=== PATIENT | female | born 1980 | race Caucasian/White ===

== ENCOUNTER 2018-03-12 14:52 | Emergency (ER) | payer OTHER, BC, SELFPAY ==
[2018-03-12 14:52] VITALS: BP 129/76; BP 132/81; PULSE 87; PULSE 95; RESP 10; RESP 14; TEMP 36.9; O2SAT 95; O2SAT 99; BMI 24.7
--- NOTE | 2018-03-12 15:08 | EKG12_ITS ---
Test Reason : SYNCOPE Blood Pressure : / mmHG Vent. Rate : 097 BPM Atrial Rate : 097 BPM P-R Int : 126 ms QRS Dur : 096 ms QT Int : 398 ms P-R-T Axes : 067 047 060 degrees QTc Int : 505 ms Normal sinus rhythm Prolonged QT Abnormal ECG Confirmed by EVE WATSON, ANGELIA ([id number]), editorial clerk IVIS ADAMS ([id number] on 03/14/2018 9:08:46 AM Referred By: MELODIE Confirmed By:ANGELIA PRADO MD
--- NOTE | 2018-03-12 15:13 | ED.DCSUM_ITS ---
- ER Visit Summary Date of Service: 03/12/18 Chief Complaint: Syncope History of Present Illness: The patient is a 37 F presenting for evaluation secondary to a syncopal episode. 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 This caused poor modulation of her parasympathetic nervous system, and the patient has frequent episodes of syncope. She states that intermittently these are associated with seizure-like activity. 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 She states that it continued to get worse so she lied flat and apparently she passed out and had a seizure. School called squad, the patient was immediately brought to the emergency department. Patient states that she did not have any sort of chest pain palpitations associated with it. She denies any DVT or PE risk factors. Patient states that she is currently titrating down her dosage of Effexor as she will be changing to Wellbutrin within the next couple of weeks, and she states that she had nausea and vomiting last weekend associated with this. She denies any headaches neck stiffness or limb rigidity. She denies any fevers. Review of systems otherwise negative. Physical Examination: Vital signs are within normal limits, patient is afebrile. General: Patient is well-nourished well-developed and in no acute distress. Head: Normocephalic, atraumatic Eyes: Pupils anasacoria which is at baseline per the patient, extra occular motion intact bialterally ENT: Moist mucous membranes Neck: Supple, no lymphadenopathy, no JVD, no meningismus CVS: Heart regular rate and rhythm, no murmurs, rubs or gallops, radial pulses 2 + bilaterally Resp: Respirations nondistressed, lung sounds clear bilaterally Abdomen: Soft, nontender, nondistended, no palpable masses, normal bowel sounds Back: Nontender Extremities: Nontender, atraumatic, active full range of motion, no peripheral edema Skin: warm, no rashes, no petechia Neuro: Alert and oriented x 4, CN 2-12 intact, no lateralizing neurological defecits Psyc: Normal affect Test Results: Sinus rhythm at [address] segments, normal T waves. There is mild QTc prolongation 505. Trending backwards the patient's QTC has been as long as 520 in the past. CBC chemistry troponin are remarkable only for potassium of 3.3 chloride 111. Emergency Department Course and Treatment: Patient presented secondary to a syncopal episode in the setting of parasympathetic damage after a chest surgery in the past as well as recent titration of Effexor. She was evaluated with an EKG that shows a mildly prolonged QTC of 505 which the patient states that she has a history of. Patient's laboratory workup was found to be unremarkable, she did not have any events on telemetry monitoring. Given the fact that the patient has had history of this in the past and do not believe that she requires admission. Patient did state that she was having nausea over the weekend this could potentially be from her downward titration of Effexor, she was recommended on clear liquids, and aggressive hydration. She is instructed to follow-up with primary care. Disposition: Discharge Impression: 1. Syncope 2. 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 History of prolonged QTC This note was generated with [employer] dictation software. It may contain incorrect words, spelling, and punctuation that were not noted in review of the chart prior to signing ED Disposition - Plan for ED Patient: Disposition: Home or Assisted Living Chief Complaint: Syncope Diagnosis: Syncope Instructions: ED Fainting Unkn Cause Referrals: Óscar Garrett MD [Primary Care Provider] - [facility] appointment
[2018-03-12 15:29] LABS: Hemoglobin 12.9 g/dl (12.0-15.0); Mean Corp Hgb Conc 32.3 g/gl (32-36); Mean Corpuscular Volume 96.2 fL (81-99); Mean Platelet Vol. 9.1 fl (6.2-12.0); Neutrophil % 62.4 % (47-70); Platelet Count 306 K/mm3 (150-450); RBC Distribution Width CV 12.7 % (11.6-14.6); RBC Distribution Width SD 44.4 fl (35.1-43.9); Red Blood Count 4.16 M/mm3 (4.2-5.4); White Blood Count 6.7 K/mm3 (4.4-11.0)
[2018-03-12 15:30] LABS: Absolute Lymphocyte Count 1.93 X10^3/ul (0.83-4.51); Absolute Neutrophil Count 4.2 X10^3/uL (2.0-7.7); Basophil# 0.02 X10^3/uL; Basophil% 0.3 % (0-1); Eosinophil# 0.08 X10^3/uL; Eosinophils% 1.2 % (0-5); Lymphocyte # 1.93 X10^3/ul (4.0); Lymphocyte % 28.6 % (19-41); Monocyte% 7.4 % (0-10)
[2018-03-12 15:36] LABS: POSITIVE COUNT NO; POSITIVE DIFFERENTIAL NO; POSITIVE MORPHOLOGY NO
[2018-03-12] MEDS: Ondansetron 4 MG/2 ML Vial IV (15:45)
[2018-03-12 15:47] LABS: Anion Gap 7 (5-15); BUN 11 mg/dL (7-18); BUN/Creat Ratio 15.3 RATIO (10-20); Calcium,Total 8.7 mg/dL (8.5-10.1); Chloride 111 mmol/L (98-107); Creatinine, Serum 0.72 mg/dL (0.55-1.02); EST Glomerular Filtration Rate 97 mL/min (>60); Est Glom Filt Rate - Afr Amer 118 mL/min (>60); Estimated Creatinine Clearance 89.35 ml/min; Glucose 85 mg/dL (74-106); Potassium 3.3 mmol/L (3.5-5.1); Sodium Level 140 mmol/L (136-145)
[2018-03-12 16:01] VITALS: BP 128/70; PULSE 80; RESP 14; O2SAT 99
[2018-03-12 16:18] VITALS: BP 116/70; PULSE 85; RESP 14; O2SAT 99
== END 2018-03-12 16:21 | disposition home or self-care (01) ==
PROVIDERS: Emergency Provider Emergency Medicine; Family Provider Family Medicine; PCP Family Medicine
DX: R55 Syncope and collapse (principal); G90.8 Other disorders of autonomic nervous system; I45.81 Long QT syndrome; Z79.899 Other long term (current) drug therapy
CPT/HCPCS: 80048; 84484; 85025; 93005; 96374; 99285; A4216; J2405

== ENCOUNTER 2018-03-31 19:05 | Emergency (ER) | payer OTHER, BC, SELFPAY ==
[2018-03-31 19:06] VITALS: BP 115/77; PULSE 105; RESP 15; TEMP 36.8; O2SAT 100; BMI 24.0
--- NOTE | 2018-03-31 19:43 | ED.VISSUMM ---
- ER Visit Summary Date of Service: 03/31/18 Chief Complaint: Nausea and vomiting History of Present Illness: The patient is a 37 F history of syncope secondary to hypotension from a prior surgery to remove a neuroma in her chest. Patient states they previously treated her with Effexor but is now switching to Wellbutrin to maintain her blood pressure. She said during the transition from one medication the other she has had nausea and vomiting. She denies fever. She denies diarrhea. She denies abdominal pain. She denies dysuria. Physical Examination: Well-appearing young female. Vital signs are stable afebrile. Her blood pressure is 115 7. Afebrile. Pulse ox are percent on room air no signs of hypoxia. She is in no distress. H EENT exam unremarkable with moist mucous membranes. 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 Neck nontender no JVD. Lungs clear to auscultation bilaterally. Heart regular rhythm rate about 105 no murmur. Abdomen soft nontender. Normal bowel sounds no peritoneal signs. No signs of obstruction. Moving all 4 extremities. Neurovascularly intact. Neurologically she is awake and alert without focal motor deficits. Test Results: None Emergency Department Course and Treatment: Patient will be treated with 1 L normal saline. Zofran for nausea. And Toradol for her headache. Treatment Plan: Repeat exam doing well. She will be discharged to home with a prescription for Zofran. Disposition: discharge Impression: Acute nausea and vomiting History of syncope from hypotension This note was generated with [employer] dictation software. It may contain incorrect words, spelling, and punctuation that were not noted in review of the chart prior to signing ED Disposition - Plan for ED Patient: Chief Complaint: Nausea/Vomiting Referrals: Óscar Garrett MD [Primary Care Provider] -
[2018-03-31] MEDS: Ketorolac 30 MG/ML Syringe IV (20:08)
[2018-03-31] MEDS: Ondansetron 4 MG/2 ML Vial IV (20:08)
[2018-03-31] MEDS: 0.9% Normal Saline 1,000 ML 1000 ML IV (20:08)
--- NOTE | 2018-03-31 20:37 | ED.DEP ---
ED Disposition - Plan for ED Patient: Disposition: Home or Assisted Living Chief Complaint: Nausea/Vomiting Instructions: ED Nausea Vomiting Prescriptions: Ondansetron [Zofran Odt] 4 mg PO Q8H PRN PRN #10 tab PRN Reason: Nausea Referrals: Óscar Garrett MD [Primary Care Provider] - Additional Instructions: Plenty fluids and rest. Zofran as needed for nausea. Follow-up your primary care physician as needed.
[2018-03-31 20:54] VITALS: BP 105/78; PULSE 95; RESP 14; O2SAT 99
[2018-03-31] MEDS: DiphenhydrAMINE 50 MG/ML Syringe 25 MG IV (21:01)
[2018-03-31] MEDS: Ondansetron ODT 4 MG Tablet PO (21:01)
== END 2018-03-31 21:08 | disposition home or self-care (01) ==
PROVIDERS: Emergency Provider Emergency Medicine; Family Provider Family Medicine; PCP Family Medicine
DX: R11.2 Nausea with vomiting, unspecified (principal); I95.89 Other hypotension; R55 Syncope and collapse; Z79.899 Other long term (current) drug therapy
CPT/HCPCS: 96374; 96375; 99283; J7030; A4216; J2405

== ENCOUNTER → 2019-04-09 | Outpatient (CLI) | payer OTHER, BC, SELFPAY ==
[2019-04-02 16:39] VITALS: BMI 23.9
== END | disposition home or self-care (01) ==
LOC: LABSPEC 15:27
PROVIDERS: Family Provider Family Medicine; PCP Family Medicine; Referring Provider Family Medicine; Visit Provider Family Medicine
DX: J32.9 Chronic sinusitis, unspecified (principal)
CPT/HCPCS: 87070; 87077; 87186; 87205

== ENCOUNTER → 2019-04-19 | Outpatient (CLI) | payer OTHER, BC, SELFPAY ==
[2019-04-02 16:39] VITALS: BMI 23.9
--- NOTE | 2019-04-19 13:41 | CT_ITS ---
STUDY: CT MAXILLOFACIAL SINUSES REASON FOR EXAM: Female, 38 years old. Sinusitis. RADIATION DOSAGE (If Supplied By Facility): CTDIvol = ( 33.06 ) mGy, DLP = ( 825.58 ) mGycm TECHNIQUE: The patient was scanned in a multi detector CT scanner. High resolution axial imaging was performed without the administration of intravenous contrast material. Sagittal and coronal images were reconstructed. Individualized dose optimization techniques were used for this CT. COMPARISON: None. FINDINGS: FRONTAL SINUSES: Chronic sinusitis in the right frontal sinus. Left frontal sinus is clear. ETHMOIDAL SINUSES: Prominent soft tissue density filling most of the right ethmoid air cells. Left ethmoid air cells are normal. MAXILLARY SINUSES: Near complete opacification of the right maxillary sinus including possible air-fluid level. Opacification of the right ostiomeatal complex. Left maxillary sinus and ostiomeatal complex are normal. SPHENOIDAL SINUSES: Soft tissue density consistent with chronic mucosal thickening and chronic inflammatory secretions seen in the right sphenoid sinus. Left sphenoid sinus is clear. Normal bilateral middle turbinates. Normal bilateral inferior turbinates. Normal midline nasal septum. There is patency of the bilateral nasal airways. The visualized osseous structures are normal. The visualized bilateral orbital contents are normal. CT/Sinus/Facial Bone IMPRESSION: Unusual pattern of moderate to severe chronic sinusitis and possibly acute maxillary sinusitis throughout the right paranasal sinuses while the left paranasal sinuses remain normal. Electronically Signed: Jeronimo Zhang MD at 23:45 EDT , Service support ,
== END | disposition home or self-care (01) ==
LOC: CT 13:38
PROVIDERS: Family Provider Family Medicine; PCP Family Medicine; Referring Provider Otolaryngology Otolaryngology/Facial Plastic Surgery; Visit Provider Otolaryngology Otolaryngology/Facial Plastic Surgery
DX: J32.9 Chronic sinusitis, unspecified (principal)
CPT/HCPCS: 70486

== ENCOUNTER 2019-05-03 21:37 | Emergency (ER) | payer OTHER, BC, SELFPAY ==
[2019-04-02 16:39] VITALS: BMI 23.9
[2019-05-03 21:39] VITALS: BP 127/79; PULSE 99; RESP 16; TEMP 36.8; O2SAT 100; BMI 26.5
[2019-05-03 22:41] LABS: Absolute Lymphocyte Count 2.95 X10^3/ul (0.83-4.51); Absolute Neutrophil Count 4.3 X10^3/uL (2.0-7.7); Basophil# 0.01 X10^3/uL; Basophil% 0.1 % (0-1); Eosinophil# 0.25 X10^3/uL; Hematocrit 39.7 % (37-47); Hemoglobin 13.2 g/dl (12.0-15.0); Lymphocyte # 2.95 X10^3/ul (4.0); Lymphocyte % 35.6 % (19-41); Mean Corp Hgb Conc 33.2 g/gl (32-36); Mean Corpuscular Hgb 31.8 pg (27.0-32.0); Mean Corpuscular Volume 95.7 fL (81-99); Mean Platelet Vol. 9.5 fl (6.2-12.0); Monocyte# 0.77 X10^3/uL; Monocyte% 9.3 % (0-10); Platelet Count 309 K/mm3 (150-450); RBC Distribution Width CV 12.6 % (11.6-14.6); RBC Distribution Width SD 43.7 fl (35.1-43.9); Red Blood Count 4.15 M/mm3 (4.2-5.4); White Blood Count 8.3 K/mm3 (4.4-11.0)
[2019-05-03 22:42] LABS: POSITIVE COUNT NO; POSITIVE DIFFERENTIAL NO; POSITIVE MORPHOLOGY NO
[2019-05-03 22:51] LABS: Anion Gap 5 (5-15); BUN 15 mg/dL (7-18); BUN/Creat Ratio 20.3 RATIO (10-20); Chloride 108 mmol/L (98-107); Creatinine, Serum 0.74 mg/dL (0.55-1.02); EST Glomerular Filtration Rate 94 mL/min (>60); Est Glom Filt Rate - Afr Amer 113 mL/min (>60); Glucose 87 mg/dL (74-106); Magnesium 1.9 mg/dL (1.6-2.6); Potassium 3.6 mmol/L (3.5-5.1); Sodium Level 138 mmol/L (136-145)
--- NOTE | 2019-05-03 23:33 | ED.VISSUMM ---
- ER Visit Summary Date of Service: 05/03/19 Chief Complaint: Numbness and tingling History of Present Illness: The patient is a 38 F who presents with numbness and tingling to bilateral feet and hands over the past several days. She started taking doxycycline 5 days ago after having surgery on her nasal septum. She thought today that it might be an allergic reaction to the doxycycline. She called the pharmacist who then referred her to her ENT. ENT advised her to stop the medication and take Benadryl. She states after the first dose of Benadryl her symptoms seem to improve. They did return when she took her second dose of Benadryl did not get any improvement and noted paresthesias up to her knees bilaterally. She has not had any muscle weakness. Physical Examination: Vital signs unremarkable. Patient sitting upright in bed no acute distress. Heart is regular rate and rhythm. Lung sounds clear. Abdomen is soft and nontender. Neuro exam reveals normal strength throughout. She reports decreased sensation to light touch the bilateral lower legs. She has normal coloration and legs are warm to touch. She has strong distal pulses. Test Results: Electrolytes were checked here. CBC and chemistry studies along with magnesium are all normal. Emergency Department Course and Treatment: I advised the patient that at this time I do not have a definitive cause for her reported paresthesias. They are perfectly symmetric and would be atypical for a central neurologic cause. Although this is not a typical reaction to doxycycline she cannot think of anything else that was different. It may just take more time for the doxycycline to get out of her system. Treatment Plan: [] Disposition: Discharge Impression: Paresthesias This note was generated with [employer] dictation software. It may contain incorrect words, spelling, and punctuation that were not noted in review of the chart prior to signing ED Disposition - Plan for ED Patient: Disposition: Home or Assisted Living Instructions: Paraesthesias Referrals: Óscar Garrett MD [Primary Care Provider] - 3-5 Days if not improving
[2019-05-03 23:40] VITALS: BP 127/80; PULSE 77; RESP 16; O2SAT 99
== END 2019-05-03 23:41 | disposition home or self-care (01) ==
PROVIDERS: Emergency Provider Emergency Medicine; Family Provider Family Medicine; PCP Family Medicine
DX: R20.2 Paresthesia of skin (principal); F41.9 Anxiety disorder, unspecified; F32.9 Major depressive disorder, single episode, unspecified; Z79.899 Other long term (current) drug therapy
CPT/HCPCS: 80048; 83735; 85025; 99283

== ENCOUNTER → 2019-06-14 | Outpatient (CLI) | payer OTHER, BC, SELFPAY ==
--- NOTE | 2019-06-14 14:12 | CT_ITS ---
STUDY: CT MAXILLOFACIAL SINUSES REASON FOR EXAM: Female, 38 years old. Chronic sinusitis, recent balloon septoplasty procedure RADIATION DOSAGE (If Supplied By Facility): CTDIvol = ( 33.45 ) mGy, DLP = ( 843.27 ) mGycm TECHNIQUE: The patient was scanned in a multi detector CT scanner. High resolution axial imaging was performed without the administration of intravenous contrast material. Sagittal and coronal images were reconstructed. Individualized dose optimization techniques were used for this CT. COMPARISON: None. FINDINGS: Paranasal sinuses are clear. Nasofrontal recesses, ostiomeatal units and sphenoethmoid recesses are clear. There is minimal amount of mucus in the right sphenoid sinus. There is dehiscence of the right frontal sinus posterolateral wall along the orbital roof. There is no herniation of orbital contents into the sinus. Nasal cavity and nasopharynx are clear. Base of skull is intact. CT/Sinus/Facial Bone IMPRESSION: Unremarkable paranasal sinuses without acute or chronic illness. Electronically Signed: Carrol Elliott, at 17:07 EDT Tel , Service support ,
== END | disposition home or self-care (01) ==
LOC: CT 14:09
PROVIDERS: Family Provider Family Medicine; PCP Family Medicine; Referring Provider Otolaryngology; Visit Provider Otolaryngology
DX: J32.0 Chronic maxillary sinusitis (principal)
CPT/HCPCS: 70486

== ENCOUNTER 2019-09-09 16:49 | Emergency (ER) | payer OTHER, BC, SELFPAY ==
[2019-09-09 16:52] VITALS: BP 110/83; PULSE 112; RESP 16; TEMP 37; O2SAT 100; BMI 27.8
--- NOTE | 2019-09-09 17:08 | EKG12_ITS ---
Test Reason : CP Blood Pressure : / mmHG Vent. Rate : 098 BPM Atrial Rate : 098 BPM P-R Int : 130 ms QRS Dur : 094 ms QT Int : 392 ms P-R-T Axes : 067 027 040 degrees QTc Int : 500 ms Normal sinus rhythm Prolonged QT Abnormal ECG Confirmed by FAY TORRES ([id number]), fan mail editor ZIYAD GRAHAM ([id number]) on 09/16/2019 9:04:06 AM Referred By: SEEMA Confirmed By:FAY TORRES
--- NOTE | 2019-09-09 17:11 | ED.DCSUM_ITS ---
History of Present Illness Chief Complaint: Chest Pain Informant: Patient Onset: Yesterday Narrative: Patient sent in after seeing her chiropractor for chest pains starting yesterday. States pressure wraps around to her back both sides. States when he gets severe will get short of breath and sick to her stomach. States not as severe currently however pain is a 7. No recent cough. No recent travel, surgeries, or immobilizations. No history of PE or DVT. No tobacco history. No family history of MIs at a young age. No history of hypertension, diabetes, hypercholesterolemia. States has hypotension on midodrine and Topamax followed by Dr. Kamara in [place]. Reports has have stress test due to her syncopal episodes from her hypotension. Reports saw her chiropractor was adjusted reports her blood pressure systolic 120s is higher than normal therefore sent here for evaluation. Prior similar symptoms: Yes Past Medical History - Allergies and Home Meds Allergies/Adverse Reactions: Allergies albuterol Allergy (Mild, Verified 09/09/19 16:50) x morphine Allergy (Mild, Verified 09/09/19 16:50) x doxycycline Allergy (Verified 09/09/19 16:50) Other hydromorphone HCl [From Dilaudid] Allergy (Verified 09/09/19 16:50) Unknown Primary Care Physician: Óscar Limon MD [Primary Care Provider] - Smoking Status: Never smoker Review of Systems General: Denies: Chills, Fever, Sweats Eyes: Denies: Visual changes - bilaterally, Diplopia ENT: Denies: Rhinorrhea, Sore throat Cardiovascular: Reports: Chest pain. Denies: Palpitations Respiratory: Denies: Dyspnea, Cough, Dyspnea on exertion Gastrointestinal: Denies: Abdominal pain, Nausea, Vomiting, Diarrhea, Melena, Hematochezia Genitourinary: Denies: Dysuria, Hematuria, Frequency Musculoskeletal: Denies: Back pain, Extremity Pain Skin: Denies: Rash, Wounds Neurological: Denies: Headache, Weakness, Numbness Physical Exam Vital Signs/Narrative: Vital Signs Temp Pulse Resp BP Pulse Ox 09/09/19 16:52 98.6 F 112 H 16 110/83 H 100 Inital Vital Signs reviewed: Yes General: Well nourished, Well developed, No Acute Distress Head: Normocephalic, Atraumatic Eyes: Perrl, EOMI ENT: Moist mucous membranes, No rhinorrhea Neck: Supple, Nontender Cardiovascular: Regular rate, Regular rhythm, No murmurs Respiratory: No distress, CTA bilaterally, Chest nontender Abdomen: Soft, Nontender, Nondistended, Normal bowel sounds Back: Nontender, Normal Inspection Extremities: Nontender, No edema Skin: Normal color, No rash Neurological: Alert, Oriented x3, Cranial nerves II-XII grossly intact, Normal Strength, Normal Sensation Psychological: Normal affect, Normal Mood Diagnostic/Tx/Re-eval Clinical Impression(s) from Imaging Studies Chest X-Ray 09/09/19 17:30 IMPRESSION: 1. No acute cardiorespiratory disease. [ ] Electronically Signed: Carrol Elliott, at 17:52 EDT Tel , Service support , Abnormal Lab Results 09/09/19 09/09/19 09/09/19 17:20 17:20 17:20 WBC 7.0 RBC 3.80 L Hgb 12.1 Hct 37.0 MCV 97.4 MCH 31.8 MCHC 32.7 RDW Std Deviation 43.8 RDW Coeff of Yael 12.1 Plt Count 286 MPV 9.6 Immature Gran % (Auto) 0.300 Neut % (Auto) 59.9 Lymph % (Auto) 30.8 Benson % (Auto) 7.6 Eos % (Auto) 1.1 Baso % (Auto) 0.3 Absolute Neuts (auto) 4.2 Absolute Lymphs (auto) 2.15 Nucleated RBC % 0 D-Dimer Quant (PE/DVT) < 0.27 L Sodium 141 Potassium 3.3 L Chloride 110 H Carbon Dioxide 25.0 Anion Gap 6 BUN 12 Creatinine 0.80 Estim Creat Clear Calc 78.87 Est GFR (MDRD) Af Amer 103 Est GFR (MDRD) Non-Af 85 BUN/Creatinine Ratio 15.0 Glucose 89 Calcium 8.9 Troponin I < 0.015 Serum , Qual 09/09/19 17:20 WBC RBC Hgb Hct MCV MCH MCHC RDW Std Deviation RDW Coeff of Yael Plt Count MPV Immature Gran % (Auto) Neut % (Auto) Lymph % (Auto) Benson % (Auto) Eos % (Auto) Baso % (Auto) Absolute Neuts (auto) Absolute Lymphs (auto) Nucleated RBC % D-Dimer Quant (PE/DVT) Sodium Potassium Chloride Carbon Dioxide Anion Gap BUN Creatinine Estim Creat Clear Calc Est GFR (MDRD) Af Amer Est GFR (MDRD) Non-Af BUN/Creatinine Ratio Glucose Calcium Troponin I Serum , Qual NEGATIVE - EKG Initial EKG Interpretation: Sinus Rhythm - Sinus rate of 98, no ST or T wave changes. Report electronic QTC is 500, however calculated QTC is 358. - Medical Decision Making Patient EKG cardiac work-up negative. Heart score is a 1. Initial presentation with tachycardia gives her low risk Wells criteria for PE. D-dimer obtained was normal. Chest x-ray negative. She given Toradol with improvement of symptoms only mild back pain. States tolerable. Is comfortable going home. She will follow-up as an outpatient for further testing as needed. Should continue Motrin. Signs and symptoms discussed return. All questions were answered. ED Disposition - Plan for ED Patient: Disposition: Home or Assisted Living Diagnosis: Atypical chest pain Instructions: CHEST PAIN, Uncertain Cause Referrals: Óscar Limon MD [Primary Care Provider] - 3-5 Days
--- NOTE | 2019-09-09 17:30 | RAD_ITS ---
STUDY: X-RAY CHEST REASON FOR EXAM: Female, 39 years old. Chest pain TECHNIQUE: Two view of the chest were performed COMPARISON: 08 June 2016 FINDINGS: Lungs are clear. There is no pneumothorax, pulmonary edema, pleural effusions or cardiomegaly. Osseous structures are intact. There is no gas under the diaphragms. [ Loop recorder is implanted in the left anterior chest wall. ] RAD/Chest PA and Lateral IMPRESSION: 1. No acute cardiorespiratory disease. [ ] Electronically Signed: Carrol Elliott, at 17:52 EDT Tel , Service support ,
[2019-09-09 17:37] LABS: Absolute Lymphocyte Count 2.15 X10^3/uL (0.83-4.51); Absolute Neutrophil Count 4.2 X10^3/uL (2.0-7.7); Basophil# 0.02 X10^3/uL; Basophil% 0.3 % (0-1); Eosinophil# 0.08 X10^3/uL; Eosinophils% 1.1 % (0-5); Hemoglobin 12.1 g/dL (12.0-15.0); Lymphocyte # 2.15 X10^3/ul (4.0); Lymphocyte % 30.8 % (19-41); Mean Corp Hgb Conc 32.7 g/dL (32-36); Mean Corpuscular Hgb 31.8 pg (27.0-32.0); Mean Corpuscular Volume 97.4 fL (81-99); Mean Platelet Vol. 9.6 fl (6.2-12.0); Monocyte# 0.53 X10^3/uL; Monocyte% 7.6 % (0-10); NRBC Flagged by Analyzer 0 % (0-5); Neutrophil # 4.17 X10^3/uL (2.7-7.7); Neutrophil % 59.9 % (47-70); Platelet Count 286 K/mm3 (150-450); RBC Distribution Width CV 12.1 % (11.6-14.6); RBC Distribution Width SD 43.8 fl (35.1-43.9)
[2019-09-09 17:49] LABS: Anion Gap 6 (5-15); BUN 12 mg/dL (7-18); Calcium,Total 8.9 mg/dL (8.5-10.1); Chloride 110 mmol/L (98-107); EST Glomerular Filtration Rate 85 mL/min (>60); Est Glom Filt Rate - Afr Amer 103 mL/min (>60); Estimated Creatinine Clearance 78.87 ml/min; Glucose 89 mg/dL (74-106); Potassium 3.3 mmol/L (3.5-5.1); Sodium Level 141 mmol/L (136-145)
[2019-09-09 18:03] VITALS: BP 127/86; PULSE 90; RESP 16; O2SAT 100
[2019-09-09 18:09] LABS: D-Dimer Quantitative (DVT/PE) < 0.27 FEU/ug/m (0.27-0.49)
[2019-09-09 18:30] LABS: Internal QC Validated? YES +Cl - CLEAR BKGD; Pregnancy, Serum, hCG Quali. NEGATIVE Negative
[2019-09-09] MEDS: Ketorolac 30 MG/ML Syringe IV (18:57)
[2019-09-09 20:02] VITALS: BP 120/82; PULSE 89; RESP 13; O2SAT 99
[2019-09-09 20:16] VITALS: BP 116/92; PULSE 88; RESP 14; O2SAT 100
== END 2019-09-09 20:17 | disposition home or self-care (01) ==
PROVIDERS: Emergency Provider Emergency Medicine; Family Provider Family Medicine; PCP Family Medicine
DX: R07.89 Other chest pain (principal); I10 Essential (primary) hypertension; Z79.899 Other long term (current) drug therapy
CPT/HCPCS: 71046; 80048; 84484; 84703; 85025; 85379; 93005; 96374; 99284; A4216

== ENCOUNTER → 2019-09-18 | Outpatient (CLI) | payer OTHER, BC, SELFPAY ==
[2019-09-09 16:52] VITALS: BMI 27.8
[2019-09-18 09:54] LABS: Potassium 3.7 mmol/L (3.5-5.1)
--- NOTE | 2019-09-18 14:52 | NEURO ---
NCS and/or EMG Patient Report Ordering Doctor: Óscar Limon DATE OF SERVICE: 09/18/19 Brittny Pablo is a 39-year-old female presents for electrodiagnostic testing of the upper limbs. She reports severe pain in the chest which radiates primarily into the right upper limb. Electrodiagnostic findings: Median motor nerve demonstrates normal distal latency, amplitude and conduction velocity bilaterally. Normal ulnar motor response bilaterally. Normal median and ulnar F waves. Sensory responses are within normal limits. On needle EMG, all muscles tested in the upper limbs showed no evidence of denervation with normal motor unit action potentials. Electrodiagnostic assessment: This is a normal electrodiagnostic study of the upper limbs. There is no electrodiagnostic evidence for peripheral neuropathy, brachial plexopathy or cervical radiculopathy. If there are any further questions, please do not hesitate to contact me.
== END | disposition home or self-care (01) ==
PROVIDERS: Family Provider Family Medicine; PCP Family Medicine; Referring Provider Family Medicine; Visit Provider Family Medicine
DX: E87.6 Hypokalemia (principal); G62.9 Polyneuropathy, unspecified
CPT/HCPCS: 36415; 84132; 95886; 95913

== ENCOUNTER → 2019-10-17 07:06 | Outpatient (CLI) | payer OTHER, BC, SELFPAY ==
--- NOTE | 2019-10-17 07:09 | CT_ITS ---
STUDY: CT CHEST WITH CONTRAST REASON FOR EXAM: Female, 39 years old. Ganglioneuroma removed in 2012, right-sided chest tightness RADIATION DOSAGE (If Supplied By Facility): CTDIvol = ( 8.25 ) mGy, DLP = ( 244.93 ) mGycm TECHNIQUE: Transaxial imaging was performed following intravenous administration of 100mL [id number]-300. Individualized dose optimization techniques were used for this CT. COMPARISON: 08 June 2016 FINDINGS: Lungs are clear. Pleural surfaces are intact. Central airways are patent. Mediastinal contents are normal. Cardiac changes are normal in size and shape. Aorta and pulmonary artery are unremarkable. Osseous structures are unremarkable. Loop recorder is implanted in the left anterior chest wall. CT/Chest WITH Contrast IMPRESSION: Normal enhanced CT Chest examination. Electronically Signed: Carrol Elliott, at 16:54 EST Tel , Service support ,
== END ==
PROVIDERS: Family Provider Family Medicine; PCP Family Medicine; Referring Provider Family Medicine; Visit Provider Family Medicine
DX: D36.10 Benign neoplasm of peripheral nerves and autonomic nervous system, unspecified (principal)
CPT/HCPCS: 71260; Q9967

== ENCOUNTER 2020-04-28 13:01 | Day surgery (SDC) | payer OTHER, BC, SELFPAY ==
--- NOTE | 2020-04-27 15:13 | HP.PCM_ITS ---
History and Physical Date of Admission: 04/28/20 Brittny Pablo 1980 ? ? REFERRING PHYSICIAN: Alexsander Meadows, * ? CHIEF COMPLAINT: Umbilical Hernia Repair-2 ? HPI: The patient is a 39 year old female presents with painful umbilical hernia. She had an episode of incarceration, several days ago, noted golf ball sized lesion - very painful, stuck for about an hour and a half. Also had abdominal bloating and nausea. Patient has known of hernia for the past 8 years but only recently it has become symptomatic. Presently, is having bowel movements and passing flatus. She still has pain in the periumbiilcal area. ? ? PAST MEDICAL HISTORY ? Abdominal pain, right upper quadrant ? ? Calculus of gallbladder without mention of cholecystitis or obstruction ? ? Dizziness ? ? Dyspnea ? ? resolved after resection of the tumor ? Flatulence, eructation, and gas pain ? ? Gallbladder & bile duct stone ? ? 2010 ? Lightheadedness ? ? 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 Migraine, unspecified, with intractable migraine, so stated, without mention of status migrainosus ? ? Migraine ? Nausea alone ? ? Recent childbirth 2006,2009 ? Syncope ? ? recurrent; extensive evaluation at [facility] indicates vasovagal etiology ? Syncope and collapse ? ? PAST SURGICAL HISTORY ? APPENDECTOMY ? 2000? ? laproscopic ? ECHOCARDIOGRAM ? ? ? EF 60%, no valvular disease, no hypertrophy ? EXPLORER EVENT MONITOR ? 05/2016 ? EXTRACTION ERUPTED TOOTH/EXR ? ? ? wisdom teeth ? INCISION EARDRUM,ASPIR,GEN ANESTH ? ? ? Myringotomy/tubes ? LAP CHOLECYSTECT/CHOLANGIOGRAPHY ? 02/26/2010 ? MEDIASTINOSCOPY ? 07/26/2013 ? Visualization of chest; with bx ? OVARIAN CYSTECTOMY ? 2000? ? laproscopic ? PAST SURGICAL HISTORY OF ? 08/14/2013 ? Thoracoscopy, surgical; video-assisted thoracoscopic surgery; resection of right superior mediastinal ganglioneuroma; [facility] Dr. Castillo ? PAST SURGICAL HISTORY OF ? ? ? Tympanostomy tube; in her 20's ? ? Current Outpatient Medications ? escitalopram oxalate (LEXAPRO ORAL) Take by mouth. ? gabapentin (NEURONTIN) 100 mg capsule Take 100 mg by mouth three times daily. ? midodrine (PROAMITINE) 5 mg tablet Take 1 tablet by mouth three times daily. Patient needs appointment to continue medication. ? topiramate (TOPAMAX) 25 mg capsule Take 4 capsules by mouth twice daily. ? levonorgestrel (MIRENA) 20 mcg/24 hour (5 years) IUD 1 Each by INTRAUTERINE route one time only. ? HYDROcodone-acetaminophen (NORCO) 5-325 mg per tablet Take 1 tablet by mouth every 6 hours as needed for Pain for up to 5 days. ? benzonatate (TESSALON PERLE) 100 mg capsule Take 2 capsules by mouth three times daily as needed. (Patient not taking: Reported on 01/25/2019 ? venlafaxine XR (EFFEXOR XR) 150 mg 24 hr capsule Take 1 capsule by mouth once daily. (Patient not taking: Reported on 04/24/2020 ? ? ALLERGIES: Albuterol Sulfate; Dilaudid [Hydromorphone (Bulk)]; Oxycodone; Hydromorphone ? PERSONAL HISTORY: Social History Tobacco Use ? Smoking status: Never Smoker ? Smokeless tobacco: Never Used Substance Use Topics ? Alcohol use: No ? Drug use: No ? FAMILY HISTORY ? Breast Cancer Mother ? ? Dx in 40s ? Cancer Maternal Grandfather ? ? Lymphoma, melanoma ? Aneurysm Mother ? ? Hypertension Maternal Grandmother ? ? Coronary Artery Disease Maternal Grandmother ? ? HTN ? other (KIDNEY DISEASE [Other]) Mother ? ? other (gallbladder [Other]) Mother ? ? Arthritis Maternal Grandmother ? ? RHEUMATOID ? Breast Cancer Other ? ? aunt ? Glaucoma Maternal Grandmother ? ? Heart Maternal Grandmother ? ? Prostate Cancer Maternal Grandfather ? ? Skin Cancer Maternal Grandfather ? ? Stroke Mother ? ? other (Systemic lupus [Other]) Mother ? ? The review of systems data was entered by the nurse and reviewed by me ? Nursing Notes: Edilia Robertson LPN 04/24/2020 10:52 AM Signed REVIEW OF SYSTEMS: General: The patient NOTES fatigue, denies weight loss, denies weight gain, denies feeling hot, and denies feelings of cold. Eyes: The patient denies glaucoma, denies eye injury/surgery, does not wear glasses or contacts. Ear/Nose/Throat: The patient NOTES allergies, denies hayfever, denies ear infections, and denies bloody noses. Cardiovascular: has prolonged QT, denies chest pain, denies heart disease, denies high blood pressure,denies cardiac stent, denies prior heart attack, denies irregular heart beat, denies high cholesterol, denies poor circulation, denies heart failure, other cardiac issues, denies claudication, denies cold feet, denies peripheral arterial stent. Respiratory: The patient denies tuberculosis, denies pneumonia, denies frequent cough, denies pulmonary embolism, denies shortness of breath, and denies coughing up blood. Gastrointestinal: The patient denies difficulty swallowing, denies acid reflux, denies ulcers, denies vomiting, denies jaundice/hepatitis, NOTES gallbladder problems, denies black or tarry stools, denies hemorrhoids, denies bleeding from rectum, denies diverticulitis, denies constipation, denies diarrhea, denies loss of stool control, and NOTES hernias. Kidney/Bladder: The patient denies kidney stones, denies urine infections, and denies bloody urine. Skin: The patient denies a history of skin cancer, denies bleeding/changing moles, and denies a history of skin rash. 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 Psychiatric: The patient denies psychiatric medications, NOTES depression, and denies voices, denies substance abuse. Endocrine: The patient denies thyroid disorders, denies diabetes, and denies hormonal problems. Hematologic: The patient NOTES a history of bruising, denies bleeding, and denies anemia, denies blood clots. Infections: The patient denies a history of measles and mumps, denies rheumatic fever, and denies sexually transmitted diseases. Musculoskeletal: The patient denies back pain/injury, denies back problems, denies sciatica, denies knee/foot trouble, denies arthritis, or denies gout. ? When was patient's last Mammogram screening? N/A Last Colonoscopy: None ? Edilia Robertson LPN ? PHYSICAL EXAMINATION: General: The patient is 39 year old female, well nourished, well hydrated in no acute distress. The patient is oriented to time, place, and person. VITALS: Blood pressure 118/82, pulse 104, temperature 37.1 ?C (98.7 ?F), temperature source Temporal, resp. rate 22, height 160 cm (5' 3), weight 61.2 kg (135 lb), last menstrual period 10/15/2011, SpO2 97 %. Body mass index is 23.91 kg/m?. Head ? Normocephalic. EOM intact with sclera clear and no icterus noted. Mouth with mucus membranes moist. Neck - supple with no jugular venous distention noted. Trachea is midline. Lungs ? clear to auscultation. Normal breath sounds. No rales/rhonchi/wheezing noted. No labored breathing noted, such as retractions. No cough heard. Heart ? normal S1 and S2 auscultated. No rubs/clicks/murmurs noted. Regular rate. Abdomen ? soft and benign. Tenderness in multiple areas, but mostly in periumbilical area, no incarcerated umbilical hernia palpated, but area is very tender, Normal bowel sounds. Extremities ? no calf tenderness noted. No pitting edema noted. Skin ? normal skin integrity. Neurological ? gait normal, no focal deficits noted. Psych ? calm and appropriate ? IMPRESSION: symptomatic umbilical hernia ? PLAN: I have discussed the above with the patient. I have offered umbilical hernia repair I have explained the procedure to the patient. I have counseled the patient as to the risks of the procedure, including but not limited to: infection, bleeding, injury to any blood vessels/nerves, scar tissue, injury to any intrabdominal organs, injury to bowel/bladder, intraabdominal abscess/bleeding, hernias at in cisional sites, wound infections, complications of anesthesia, etc. ? the patient understands. The patient wishes to proceed. I have answered all questions to the patient?s satisfaction and the patient has no further questions. I have encouraged patient that if she should have worsening signs/symptoms to present to [facility] ED and I will assess her for consideration of surgery sooner ? The patient was offered a surgery/procedure. The surgeon/proceduralist and patient have discussed in detail the risk of exposure to and/or potential harm posed by the COVID-19 virus with having a surgery/procedure at this time versus the risk of? delaying the surgery/procedure. It is not possible to know either the risk of delaying the surgery or procedure or chance of getting an infection with perfect accuracy, but a joint decision was made between the patient and the surgeon/proceduralist ?to proceed at this time with the scheduled surgery/procedure as indicated on the consent form. ? Diagnoses: (R10.33) Abdominal pain, periumbilical (primary encounter diagnosis) (K42.9) Umbilical hernia without obstruction or gangrene Return to Clinic: The patient is instructed to follow-up with me as above.?
[2020-04-27 15:24] LABS: Probe Check PASS; Specimen Processing Control PASS
[2020-04-28] VITALS (9 sets, daily range): BP systolic 98–122; BP diastolic 55–70; PULSE 72–85; RESP 14–16; TEMP 36.7–37.1; O2SAT 16–100; BMI 23.1
[2020-04-28 13:29] LABS: Internal QC Validated? YES +Cl - CLEAR BKGD; Pregnancy, Urine Negative Negative
[2020-04-28] MEDS: Lactated Ringers 1,000 ML 75 ML IV ×2 (13:32→17:04)
[2020-04-28] MEDS: Cefazolin 2 GM in 0.9% Normal Saline 100 ML IV (14:48)
--- NOTE | 2020-04-28 15:33 | OP.PCM_ITS ---
Report of Operation Date of Procedure: 04/28/20 Pre-Operative Diagnosis: umbilical hernia, generalized severe abdominal pain Post-Operative Diagnosis: ventral hernia repair, normal intraabdominal findings Surgery/Procedure Performed:: diagnostic laparoscopy, laparoscopic ventral hernia repair Description of Surgical Findings:: normal intraabdominal findings - no evidence of bleeding/perforation/inflammation manager sales support: Sotero Stephenson Type of Anesthesia:: General Anesthesiologist: Flaco Barkley Specimen's removed: none Drains: none Estimated Blood Loss (mL): minimal Fluids Replaced: 800 ml RL Description of Procedure: After informed consent was obtained, the patient was brought into the Operating Room. Appropriate time out protocol was followed. She was then placed in the supine position on the operating table. The patient was then placed under general anesthesia. The patient?s abdomen was then prepped with a sterile surgical skin preparation and sterile surgical drapes were placed. The infraumbilical skin fold was grasped with penetrating clamps and the skin and subcutaneous tissues were infiltrated with 0.25% marcaine with epinephrine. A transverse skin incision was then made - there was a previous incisional site at the same location. A Veress needle was then inserted into the intraabdominal cavity and checked to be in the proper position with a normal saline drop test. A CO2 pneumoperitoneum was then created. Once this was achieved, the Veress needle was removed and an 11 mm trocar was placed in its stead. A 10 mm laparoscope was then inserted into the trocar. Another 5 mm trocar site was the placed in the hypogastric area under direct visualization, this was also at a site of a previous incisional site. Careful examination of the intraabdominal contents was then done. There was no evidence of injury to any internal organs from placement of the Veress needle or the trocar. The small bowel appeared normal as well as the colon. No evidence of inflammation was noted, no peritoneal fluid was noted, no evidence of bleeding was noted. Digital palpation of the anterior abdominal fascial wall revealed a small < 1 cm defect that was superior to the umbilical dimple by 3 cm. Rather than making another incision in this area, the repair was done via laparoscopy. A small skin christianne was marked out at the site of this ventral hernia. A Granny needle with a 0 vicryl suture was then inserted into the intraabdominal space on one side of the hernia. The suture was released and then the Granny needle was inserted into the opposite side of the fascial defect. The Granny needle then grasped the other end of the suture and pulled it out. The suture was then tied. Digital palpation of the fascia revealed that the hernia was no longer present. The CO2 peritoneum was then released. The 5mm trocar site fascia was reapproximated with 0 vicryl suture. At the inferior umbilical trocar site - the fascia was reapproximated with figure of 8 placed 0 vicryl suture. All skin incisions were reapproximated with monocryl suture. Cavilon and steristrips were applied to reinforce skin closure and proper sterile dressings were placed. The patient was then extubated and brought to the Recovery Room in stable condition. - Complications none noted - Admit VTE Documentation VTE Present on Admission: Yes VTE Mechan Device Prophylaxis: SCD's
[2020-04-28] MEDS: Bupiv/Epi 0.25% 30 ML Vial (15:36)
--- NOTE | 2020-04-28 15:57 | PCM.DC.HER ---
Discharge Diet: No Restrictions - avoid carbonated beverages for a couple of days, drink plenty of fluids Discharge Activity: Return to Normal Activity, May not drive while taking narcotic pain medications. Lifting Restrictions: no lifting greater than 20 pounds for a month Additional Activity Instructions:: ambulation is encouraged Call your doctor if your incision/area has: Continuous Slow Oozing, Foul Smelling Discharge Call your doctor if you observe: Fever of 101 or Higher Additional Dressing/Incision Instructions:: Leave dressings in place. May get wet in shower. Do not soak - no tub baths/swimming Allergies/Adverse Reactions: Allergies albuterol Allergy (Mild, Verified 04/28/20 13:06) x doxycycline Allergy (Verified 04/28/20 13:06) Other hydromorphone HCl [From Dilaudid] Allergy (Verified 04/28/20 13:06) Itching morphine Adverse Reaction (Mild, Verified 04/28/20 13:06) x KEEPS PT AWAKE Medications to take at Discharge levonorgestrel 20 mcg/24 hours (5 yrs) 52 mg intrauterine device 1 device INTRAUTERINE ONCE 04/02/19 Escitalopram Oxalate [Lexapro] 20 mg PO DAILY 05/03/19 Fluticasone Propionate [Flonase Allergy Relief] 9.9 ml NS DAILY 05/03/19 Midodrine HCl 10 mg PO BID 05/03/19 Topiramate 100 mg PO DAILY 05/03/19 Famotidine [Pepcid] 20 mg PO DAILY 04/27/20 Gabapentin [Neurontin] 100 mg PO DAILY 04/27/20 Montelukast Sodium [Singulair] 10 mg PO DAILY 04/27/20 Hydrocodone/Acetaminophen [[place] 5-325 Tablet] 1 each PO Q6H PRN PRN 5 Days #20 tablet 04/28/20 The following prescriptions were given: Hydrocodone/Acetaminophen [[place] 5-325 Tablet] 1 each PO Q6H PRN PRN 5 Days #20 tablet PRN Reason: Pain Score 4-10/10 Transmission Status: Sent to [facility] Primary Care Physician: Calderon Meadows MD [Primary Care Provider] - Test Results: Test results from this visit will be discussed in further detail at your follow-up appointment, if applicable. Please Follow Up With: Angie Jensen MD - , please call if any problems When: a virtual visit appointment will be set up for you in 10-14 days
[2020-04-28] MEDS: HYDROcodone Bitartrate/Apap 5/325 Tablet PO (17:21)
== END 2020-04-28 18:13 | disposition home or self-care (01) ==
LOC: SDC 13:01 → AC 13:04
PROVIDERS: Anesthesiology; PCP Family Medicine; Referring Provider Surgery; Visit Provider Surgery
PROC: (CPT 49652; principal; 2020-04-28 14:15)
DX: K42.9 Umbilical hernia without obstruction or gangrene (principal); K21.9 Gastro-esophageal reflux disease without esophagitis; F41.9 Anxiety disorder, unspecified; F32.9 Major depressive disorder, single episode, unspecified; Z11.59 Encounter for screening for other viral diseases; Z79.899 Other long term (current) drug therapy
CPT/HCPCS: 00840; 49652; 81025; 87635; G2023; J7120; J2405; U0003

== ENCOUNTER 2020-07-03 13:04 | Day surgery (SDC) | payer OTHER, BC, SELFPAY ==
[2020-04-28 13:22] VITALS: BMI 23.1
--- NOTE | 2020-07-02 20:50 | HP.PCM_ITS ---
History and Physical Date of Admission: 07/03/20 Brittny Pablo 1980 ? ? REFERRING PHYSICIAN: ??Alexsander Meadows, * ? CHIEF COMPLAINT: ??Umbilical Hernia Repair-2 ? HPI: Ms. Pablo is s/p laparoscopic ventral hernia repair done on 04/28/2020. She notes recurrence in the area (2 cm superior to umbilical dimple) - a bulge the size of a golf ball. Denies GI/ obstructive symptoms. Denies fevers. ? PAST MEDICAL HISTORY ? Abdominal pain, right upper quadrant ? ? Calculus of gallbladder without mention of cholecystitis or obstruction ? ? Dizziness ? ? Dyspnea ? ? resolved after resection of the tumor ? Flatulence, eructation, and gas pain ? ? Gallbladder & bile duct stone ? ? 2010 ? Lightheadedness ? ? 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 Migraine, unspecified, with intractable migraine, so stated, without mention of status migrainosus ? ? Migraine ? Nausea alone ? ? Recent childbirth 2006,2008 ? Syncope ? ? recurrent; extensive evaluation at [facility] indicates vasovagal etiology ? Syncope and collapse ? PAST SURGICAL HISTORY Procedure Laterality Date ? APPENDECTOMY ? 2000? ? laproscopic ? ECHOCARDIOGRAM ? ? ? EF 60%, no valvular disease, no hypertrophy ? EXPLORER EVENT MONITOR ? 05/2016 ? EXTRACTION ERUPTED TOOTH/EXR ? ? ? wisdom teeth ? INCISION EARDRUM,ASPIR,GEN ANESTH ? ? ? Myringotomy/tubes ? LAP CHOLECYSTECT/CHOLANGIOGRAPHY ? 02/26/2010 ? MEDIASTINOSCOPY ? 07/26/2013 ?? ? Visualization of chest; with bx ? OVARIAN CYSTECTOMY ? 2000? ? laproscopic ? PAST SURGICAL HISTORY OF ? 08/14/2013 ?? ? Thoracoscopy, surgical; video-assisted thoracoscopic surgery; resection of right superior mediastinal ganglioneuroma; [facility] Dr. Castillo ? PAST SURGICAL HISTORY OF ? ? ? Tympanostomy tube; in her 20's ? Current Outpatient Medications Medication Sig ? escitalopram oxalate (LEXAPRO ORAL) Take by mouth. ? gabapentin (NEURONTIN) 100 mg capsule Take 100 mg by mouth three times daily. ? midodrine (PROAMITINE) 5 mg tablet Take 1 tablet by mouth three times daily. Patient needs appointment to continue medication. ? topiramate (TOPAMAX) 25 mg capsule Take 4 capsules by mouth twice daily. ? levonorgestrel (MIRENA) 20 mcg/24 hour (5 years) IUD 1 Each by INTRAUTERINE route one time only. ? HYDROcodone-acetaminophen (NORCO) 5-325 mg per tablet Take 1 tablet by mouth every 6 hours as needed for Pain for up to 5 days. ? benzonatate (TESSALON PERLE) 100 mg capsule Take 2 capsules by mouth three times daily as needed. (Patient not taking: Reported on 01/25/2019 ? venlafaxine XR (EFFEXOR XR) 150 mg 24 hr capsule Take 1 capsule by mouth once daily. (Patient not taking: Reported on 04/24/2020 ? ? ALLERGIES:?Albuterol Sulfate; Dilaudid [Hydromorphone (Bulk)]; Oxycodone; Hydromorphone ? PERSONAL HISTORY:? Social History ? Tobacco Use ? Smoking status: Never Smoker ? Smokeless tobacco: Never Used Substance Use Topics ? Alcohol use: No ? Drug use: No ? FAMILY HISTORY Problem Relation Age of Onset ? Breast Cancer Mother ?Dx in 40s ? Cancer Maternal Grandfather ?Lymphoma, melanoma ? Aneurysm Mother ? ? Hypertension Maternal Grandmother ? ? Coronary Artery Disease Maternal Grandmother ?HTN ? other (KIDNEY DISEASE [Other]) Mother ? ? other (gallbladder [Other]) Mother ? ? Arthritis Maternal Grandmother ?RHEUMATOID ? Breast Cancer Other ?aunt ? Glaucoma Maternal Grandmother ? ? Heart Maternal Grandmother ? ? Prostate Cancer Maternal Grandfather ? ? Skin Cancer Maternal Grandfather ? ? Stroke Mother ? ? other (Systemic lupus [Other]) Mother ?The review of systems data was entered by the nurse and reviewed by me ? Nursing Notes: Edilia Robertson LPN ? REVIEW OF SYSTEMS: ?General:???The patient NOTES fatigue, denies weight loss, denies weight gain, denies feeling hot, and denies feelings of cold. ?Eyes: ?The patient denies glaucoma, denies eye injury/surgery, does not wear glasses or contacts. ?Ear/Nose/Throat: ?The patient NOTES allergies, denies hayfever, denies ear infections, and denies bloody noses. ?Cardiovascular: has prolonged QT,?denies chest pain, denies heart disease, denies high blood pressure,denies cardiac stent, denies prior heart attack, denies irregular heart beat, denies high cholesterol, ?denies poor circulation, denies heart failure, other cardiac issues, denies claudication, denies cold feet, denies peripheral arterial stent. ?Respiratory: ?The patient denies tuberculosis, denies pneumonia, denies frequent cough, denies pulmonary embolism, denies shortness of breath, and denies coughing up blood. ?Gastrointestinal: ?The patient denies difficulty swallowing, denies acid reflux, denies ulcers, denies vomiting, denies jaundice/hepatitis, NOTES gallbladder problems, denies black or tarry stools, denies hemorrhoids, denies bleeding from rectum, denies diverticulitis, denies constipation, denies diarrhea, denies loss of stool control, and NOTES hernias. ?Kidney/Bladder: ?The patient denies kidney stones, denies urine infections, and denies bloody urine. ?Skin: ?The patient denies a history of skin cancer, denies bleeding/c hanging moles, and denies a history of skin rash. 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 ?Psychiatric: ?The patient denies psychiatric medications, NOTES depression, and denies voices, denies substance abuse. ?Endocrine: ?The patient denies thyroid disorders, denies diabetes, and denies hormonal problems. ?Hematologic: ?The patient NOTES a history of bruising, denies bleeding, and denies anemia, denies blood clots. ?Infections: ?The patient denies a history of measles and mumps, denies rheumatic fever, and denies sexually transmitted diseases. ?Musculoskeletal: ?The patient denies back pain/injury, denies back problems, denies sciatica, denies knee/foot trouble, denies arthritis, or denies gout. ?When was patient's last Mammogram screening? N/A ?Last Colonoscopy: ?None ?Edilia Robertson LPN ? ? PHYSICAL EXAMINATION: General: ?The patient is 39 year old female, well nourished, well hydrated in no acute distress. ?The patient is oriented to time, place, and person. VITALS:?Blood pressure 117/72, pulse 104, temperature 98.7 ?F RR 22, height 5' 3, weight 135 lb, Head ??Normocephalic. EOM intact with sclera clear and no icterus noted. Mouth with mucus membranes moist. Neck - supple with no jugular venous distention noted. Trachea is midline. Lungs ??clear to auscultation. Normal breath sounds. No rales/rhonchi/wheezing noted. No labored breathing noted, such as retractions. No cough heard. Heart ??normal S1 and S2 auscultated. No rubs/clicks/murmurs noted. Regular rate. Abdomen ??soft and benign. Tenderness in area 1-2 cm superior to umbilical dimple. This was the site of the repair, I do not detect a hernia, but I can palpate scar tissue, patient states that the area would bulge to the size of a golf ball, area is tender, normal bowel sounds, Extremities ??no calf tenderness noted. No pitting edema noted. Skin ??normal skin integrity. Neurological ??gait normal, no focal deficits noted. Psych ??calm and appropriate ? IMPRESSION:?symptomatic recurrence of ventral hernia ? PLAN: ??I have discussed the above with the patient. I have repeat ventral hernia repair. I have explained the procedure to the patient. I have counseled the patient as to the risks of the procedure, including but not limited to: infection, bleeding, injury to any blood vessels/nerves, scar tissue, injury to any intrabdominal organs, injury to bowel/bladder, intraabdominal abscess/bleeding, recurrence of hernia, wound infections, complications of anesthesia, etc. ??the patient understands. The patient wishes to proceed. I have answered all questions to the patient?s satisfaction and the patient has no further questions. ? The patient was offered?a?surgery/procedure. The surgeon/proceduralist and patient have discussed in detail the risk of exposure to and/or potential harm posed by the COVID-19 virus with having a surgery/procedure at this time versus the risk of??delaying the surgery/procedure. It is not possible to know either the risk of delaying the surgery or procedure or chance of getting an infection with perfect accuracy, but a joint decision was made between the patient and the surgeon/proceduralist ?to proceed at this time with the scheduled surgery/procedure as indicated on the consent form.???
[2020-07-03] VITALS (7 sets, daily range): BP systolic 111–133; BP diastolic 65–74; PULSE 81–112; RESP 15–18; TEMP 36.7–37.3; O2SAT 96–100; BMI 24.4
[2020-07-03 13:28] LABS: Hematocrit 39.8 % (37-47); Mean Corp Hgb Conc 32.7 g/dL (32-36); Mean Corpuscular Hgb 32.1 pg (27.0-32.0); Mean Corpuscular Volume 98.3 fL (81-99); Mean Platelet Vol. 9.7 fl (6.2-12.0); Platelet Count 285 K/mm3 (150-450); RBC Distribution Width CV 12.6 % (11.6-14.6); RBC Distribution Width SD 45.8 fl (35.1-43.9); Red Blood Count 4.05 M/mm3 (4.2-5.4); White Blood Count 6.7 K/mm3 (4.4-11.0)
[2020-07-03] MEDS: Lactated Ringers 1,000 ML 75 ML IV ×2 (13:37→15:32)
[2020-07-03 13:44] LABS: Anion Gap 4 (5-15); BUN 14 mg/dL (7-18); BUN/Creat Ratio 20.3 RATIO (10-20); Calcium,Total 8.7 mg/dL (8.5-10.1); Chloride 110 mmol/L (98-107); Creatinine, Serum 0.69 mg/dL (0.55-1.02); EST Glomerular Filtration Rate 101 mL/min (>60); Est Glom Filt Rate - Afr Amer 122 mL/min (>60); Estimated Creatinine Clearance 91.45 ml/min; Glucose 86 mg/dL (74-106); Potassium 3.5 mmol/L (3.5-5.1); Sodium Level 141 mmol/L (136-145)
[2020-07-03 14:10] LABS: Internal QC Validated? YES +Cl - CLEAR BKGD; Pregnancy, Urine Negative Negative
[2020-07-03] MEDS: Cefazolin 2 GM in 0.9% Normal Saline 100 ML IV (14:27)
[2020-07-03] MEDS: Bupivacaine 0.25% 30 ML Vial (15:00)
--- NOTE | 2020-07-03 15:13 | PCM.OPRPT ---
Report of Operation Date of Procedure: 07/03/20 Pre-Operative Diagnosis: ventral hernia Post-Operative Diagnosis: same Surgery/Procedure Performed:: ventral hernia repair Description of Surgical Findings:: small 1 cm fascial defect just superior to umbilical dimple Type of Anesthesia:: Local MAC Anesthesiologist: Perez Hassan Specimen's removed: none Estimated Blood Loss (mL): minimal Fluids Replaced: 800 ml RL Description of Procedure: After informed consent was obtained, patient was brought to the Operating Room. Appropriate time out protocol was followed. The patient was placed in the supine position. The patient was then placed under anesthesia by the anesthesia provider. The abdomen was then prepped with a surgical skin preparation and appropriate sterile surgical drapes were placed. The patient had pointed out the area of abnormality in the preop area and this was marked preoperatively. The skin and subcutaneous tissues at this location was then infiltrated with 1% xylocaine with epinephrine followed by 0.25% Marcaine for postoperative pain control. A midline vertical incision was made just superior to the umbilical dimple using a 15 blade scalpel. The subcutaneous tissues were then sharply dissected down bluntly to the fascia. The fascial defect was then identified. It was 1 cm in maximum dimension and had protruding preperitoneal fatty tissue. The fatty tissue was reduced back into the preperitoneal area. Careful examination of the fascia revealed no further evidence of a fascial defect elsewhere in the vicinity of the patient's complaint The fascia was then reapproximated with a figure of 8 0 PDS suture. Hemostasis was controlled with electrocautery. Scarpas fascia was reapproximated with running 3-0 vicryl suture. The skin incision was closed with 4-0 Monocryl in a running subcuticular fashion. Cavilon and Steri-Strips were used to reinforce the skin closure and appropriate sterile dressing was applied. Sponge, needle, and instrument count were verified and correct at the time of skin closure. The patient was brought to the Recovery Room in stable condition. - Complications none noted - Admit VTE Documentation VTE Present on Admission: Yes VTE Mechan Device Prophylaxis: SCD's
--- NOTE | 2020-07-03 15:44 | DCINST_ITS ---
Discharge Diet: No Restrictions Discharge Activity: Return to Normal Activity, May not drive while taking narcotic pain medications. Lifting Restrictions: no lifting greater than 10-15 pounds for 4-6 weeks Call your doctor if your incision/area has: Continuous Slow Oozing, Foul Smelling Discharge Call your doctor if you observe: Fever of 101 or Higher Additional Instructions: Recommended pain control regimen - May take 600 mg ibuprofen (Motrin) and then in 3-4 hours, may take 650 mg acetaminophen (Tylenol), then in 3-4 hours may take 600 mg ibuprofen, then in 3- 4 hours may take 650 mg acetaminophen and so on for 2-3 days May take narcotic pain medication for pain that is not controlled by above and at night for comfort through the night Leave dressings in place May get dressings wet in shower - do not scrub in the area and pat dry Do not soak - no tub baths/swimming For hernia surgery - Swelling and bruising will occur in the area of the incision Ice packs applied to the area will help, apply as long as tolerated and for your comfort Allergies/Adverse Reactions: Allergies albuterol Allergy (Mild, Verified 07/03/20 13:06) x doxycycline Allergy (Verified 07/03/20 13:06) Other hydromorphone HCl [From Dilaudid] Allergy (Verified 07/03/20 13:06) Itching morphine Adverse Reaction (Mild, Verified 07/03/20 13:06) x KEEPS PT AWAKE Medications to take at Discharge levonorgestrel 20 mcg/24 hours (5 yrs) 52 mg intrauterine device 1 device INTRAUTERINE ONCE 04/02/19 Escitalopram Oxalate [Lexapro] 20 mg PO DAILY 05/03/19 Fluticasone Propionate [Flonase Allergy Relief] 9.9 ml NS DAILY 05/03/19 Midodrine HCl 10 mg PO BID 05/03/19 Topiramate 100 mg PO DAILY 05/03/19 Famotidine [Pepcid] 20 mg PO DAILY 04/27/20 Montelukast Sodium [Singulair] 10 mg PO DAILY 04/27/20 Primary Care Physician: Calderon Meadows MD [Primary Care Provider] - Test Results: Test results from this visit will be discussed in further detail at your follow- up appointment, if applicable.
[2020-07-03] MEDS: oxyCODONE 5 MG Tablet PO (16:20)
== END 2020-07-03 16:54 | disposition home or self-care (01) ==
LOC: SDC 13:05 → AC 13:06
PROVIDERS: Anesthesiology; PCP Family Medicine; Referring Provider Surgery; Visit Provider Surgery
PROC: (CPT 49565; principal; 2020-07-03 14:15)
DX: K43.2 Incisional hernia without obstruction or gangrene (principal); G43.919 Migraine, unspecified, intractable, without status migrainosus; K21.9 Gastro-esophageal reflux disease without esophagitis; F41.9 Anxiety disorder, unspecified; F32.9 Major depressive disorder, single episode, unspecified; I95.9 Hypotension, unspecified; Z79.899 Other long term (current) drug therapy
CPT/HCPCS: 00832; 49565; 80048; 81025; 85027; J7050; J7120; J2405

== ENCOUNTER → 2020-09-18 | Outpatient (CLI) | payer OTHER, BC, SELFPAY ==
[2020-07-03 13:26] VITALS: BMI 24.4
== END | disposition home or self-care (01) ==
LOC: LABSPEC 16:04
PROVIDERS: PCP Family Medicine; Referring Provider Family Medicine; Visit Provider Family Medicine
DX: Z20.828 Contact with and (suspected) exposure to other viral communicable diseases (principal)
CPT/HCPCS: 87635; U0003

== ENCOUNTER → 2020-09-21 15:17 | Outpatient (CLI) | payer OTHER, BC, SELFPAY ==
[2020-07-03 13:26] VITALS: BMI 24.4
[2020-09-21 17:46] LABS: Absolute Neutrophil Count 3.4 X10^3/uL (2.0-7.7); Basophil# 0.02 X10^3/uL; Basophil% 0.3 % (0-1); Eosinophil# 0.12 X10^3/uL; Eosinophils% 2.1 % (0-5); Hematocrit 42.7 % (37-47); Hemoglobin 13.7 g/dL (12.0-15.0); Lymphocyte % 32.5 % (19-41); Mean Corp Hgb Conc 32.1 g/dL (32-36); Mean Corpuscular Volume 99.8 fL (81-99); Mean Platelet Vol. 9.6 fl (6.2-12.0); Monocyte# 0.36 X10^3/uL; Monocyte% 6.2 % (0-10); NRBC Flagged by Analyzer 0 % (0-5); Neutrophil # 3.42 X10^3/uL (2.7-7.7); Neutrophil % 58.6 % (47-70); Platelet Count 347 K/mm3 (150-450); RBC Distribution Width CV 12.3 % (11.6-14.6); RBC Distribution Width SD 45.1 fl (35.1-43.9); Red Blood Count 4.28 M/mm3 (4.2-5.4); White Blood Count 5.8 K/mm3 (4.4-11.0)
[2020-09-21 18:04] LABS: Erythrocyte Sedimentation Rate 2 mm/hr (0-20)
[2020-09-21 18:06] LABS: Vitamin B12 414 pg/mL (211-911); Vitamin D,25 Hydroxy 29.1 ng/mL
[2020-09-21 18:20] LABS: ALB/GLOB Ratio 1.3 RATIO (0.9-2.4); AST(SGOT) 11 U/L (15-37); Alanine Aminotransfer ALT/SGPT 16 U/L (13-56); Albumin, Serum 4.2 g/dL (3.2-5.0); Alkaline Phosphatase 47 U/L (45-117); Anion Gap 8 (5-15); BUN 18 mg/dL (7-18); BUN/Creat Ratio 21.6 RATIO (10-20); CRP < 2.90 mg/L (0.0-3.0); Calcium,Total 8.5 mg/dL (8.5-10.1); Chloride 107 mmol/L (98-107); Creatinine, Serum 0.83 mg/dL (0.55-1.02); EST Glomerular Filtration Rate 81 mL/min (>60); Est Glom Filt Rate - Afr Amer 98 mL/min (>60); Ferritin 51 ng/mL (8-252); Globulin 3.3 g/dL (2.2-4.2); Glucose 89 mg/dL (74-106); Iron 103 ug/dL (50-170); Potassium 3.5 mmol/L (3.5-5.1); Protein, Total 7.5 g/dL (6.4-8.2); Rheumatoid Factor < 10.0 IU/mL (<15); Sodium Level 139 mmol/L (136-145); Thyroid Stim Hormone (TSH) 0.75 uIU/mL (0.358-3.74)
[2020-09-23 14:58] LABS: ANTINUCLEAR ANTIBODIES DIRECT Negative (Negative)
== END ==
PROVIDERS: PCP Family Medicine; Referring Provider Family Medicine; Visit Provider Family Medicine
DX: M79.10 Myalgia, unspecified site (principal); M25.50 Pain in unspecified joint; R53.83 Other fatigue; Z20.828 Contact with and (suspected) exposure to other viral communicable diseases
CPT/HCPCS: 36415; 80053; 82306; 82607; 82728; 83540; 84443; 85025; 85652; 86038; 86140; 86431; 87633; 87635; U0003

== ENCOUNTER → 2020-10-21 15:30 | Outpatient (CLI) | payer OTHER, BC, SELFPAY ==
[2020-07-03 13:26] VITALS: BMI 24.4
[2020-10-21 15:33] LABS: Lyme Ab Screen Interpretation REF LAB
[2020-10-21 18:20] LABS: CPK Total, Creatine Kinase 44 U/L (26-192)
[2020-11-03 14:17] LABS: Aldolase 2.6 U/L (3.3-10.3); CCP IgG Antibodies 5 units (0-19); EBV Acute VCA IgM < 36.0 U/mL (0.0-35.9); HLA B27 Negative (.); Lyme Scn Total Ab w/Rflx <0.91 ISR (0.00-0.90); PARVOVIRUS B19 IGG 6.8 index (0.0-0.8); PARVOVIRUS B19 IGM 0.1 index (0.0-0.8)
== END ==
PROVIDERS: PCP Family Medicine; Referring Provider Family Medicine; Visit Provider Family Medicine
DX: M79.7 Fibromyalgia (principal); R53.83 Other fatigue
CPT/HCPCS: 36415; 81291; 81374; 82085; 82550; 86200; 86618; 86664; 86665; 86747

== ENCOUNTER → 2021-08-13 15:12 | Outpatient (CLI) | payer OTHER, BC, SELFPAY ==
[2021-08-13 17:42] LABS: Absolute Lymphocyte Count 2.32 X10^3/uL (0.83-4.51); Absolute Neutrophil Count 3.6 X10^3/uL (2.0-7.7); Basophil# 0.03 X10^3/uL; Basophil% 0.4 % (0-1); Eosinophil# 0.12 X10^3/uL; Eosinophils% 1.8 % (0-5); Hematocrit 40.7 % (37-47); Hemoglobin 13.3 g/dL (12.0-15.0); Lymphocyte # 2.32 X10^3/ul (0.83-4.51); Lymphocyte % 34.7 % (19-41); Mean Corp Hgb Conc 32.7 g/dL (32-36); Mean Corpuscular Hgb 31.7 pg (27.0-32.0); Mean Corpuscular Volume 97.1 fL (81-99); Mean Platelet Vol. 9.9 fl (6.2-12.0); Monocyte# 0.62 X10^3/uL; Monocyte% 9.3 % (0-10); NRBC Flagged by Analyzer 0 % (0-5); Neutrophil # 3.58 X10^3/uL (2.7-7.7); Neutrophil % 53.7 % (47-70); Platelet Count 298 K/mm3 (150-450); RBC Distribution Width CV 12.4 % (11.6-14.6); RBC Distribution Width SD 44.6 fl (35.1-43.9); Red Blood Count 4.19 M/mm3 (4.2-5.4); White Blood Count 6.7 K/mm3 (4.4-11.0)
[2021-08-13 18:03] LABS: Vitamin D,25 Hydroxy 43.2 ng/mL
[2021-08-13 18:05] LABS: Erythrocyte Sedimentation Rate 3 mm/hr (0-30)
[2021-08-13 18:29] LABS: ALB/GLOB Ratio 1.1 RATIO (0.9-2.4); AST(SGOT) 12 U/L (15-37); Alanine Aminotransfer ALT/SGPT 20 U/L (13-56); Alkaline Phosphatase 41 U/L (45-117); Anion Gap 8 (5-15); BUN 14 mg/dL (7-18); BUN/Creat Ratio 23.1 RATIO (10-20); CRP < 2.90 mg/L (0.0-3.0); Calcium,Total 8.8 mg/dL (8.5-10.1); Chloride 107 mmol/L (98-107); Creatinine, Serum 0.61 mg/dL (0.55-1.02); EST Glomerular Filtration Rate 116 mL/min (>60); Est Glom Filt Rate - Afr Amer 141 mL/min (>60); Globulin 3.6 g/dL (2.2-4.2); Glucose 69 mg/dL (74-106); Potassium 3.6 mmol/L (3.5-5.1); Protein, Total 7.6 g/dL (6.4-8.2); Sodium Level 139 mmol/L (136-145); Thyroid Stim Hormone (TSH) 0.66 uIU/mL (0.358-3.74)
== END ==
PROVIDERS: PCP Family Medicine; Referring Provider Family Medicine; Visit Provider Family Medicine
DX: M79.7 Fibromyalgia (principal); R63.5 Abnormal weight gain
CPT/HCPCS: 36415; 80053; 82306; 82533; 84443; 85025; 85652; 86140

== ENCOUNTER → 2023-02-20 | Outpatient (CLI) | payer OTHER, BC, SELFPAY ==
[2023-02-20 12:10] LABS: Erythrocyte Sedimentation Rate 9 mm/hr (0-30)
[2023-02-20 12:43] LABS: Vitamin D,25 Hydroxy 69.9 ng/mL
[2023-02-20 13:32] LABS: ALB/GLOB Ratio 1.2 RATIO (0.9-2.4); AST(SGOT) 19 U/L (15-37); Alanine Aminotransfer ALT/SGPT 23 U/L (13-56); Albumin, Serum 3.9 g/dL (3.2-5.0); Alkaline Phosphatase 48 U/L (45-117); Anion Gap 2 (5-15); BUN 10 mg/dL (7-18); BUN/Creat Ratio 14.9 RATIO (10-20); Chloride 107 mmol/L (98-107); Cholesterol 199 mg/dL (200); Creatinine, Serum 0.67 mg/dL (0.55-1.02); EST Glomerular Filtration Rate 102 mL/min (>60); Est Glom Filt Rate - Afr Amer 124 mL/min (>60); Globulin 3.3 g/dL (2.2-4.2); Glucose 90 mg/dL (74-106); High Density Lipoprotein 65 mg/dL; Potassium 3.8 mmol/L (3.5-5.1); Protein, Total 7.2 g/dL (6.4-8.2); Sodium Level 135 mmol/L (136-145); Thyroid Stim Hormone (TSH) 1.03 uIU/mL (0.358-3.74); Triglycerides 106 mg/dL; Very Low Density Lipoprotein 21 mg/dL (5-40)
== END | disposition home or self-care (01) ==
LOC: MFPLAB 10:07
PROVIDERS: PCP Family Medicine; Visit Provider Family Medicine
DX: M79.7 Fibromyalgia (principal); Z13.220 Encounter for screening for lipoid disorders
CPT/HCPCS: 36415; 80053; 80061; 82306; 84443; 85652

== ENCOUNTER → 2023-12-25 | Outpatient (CLI) | payer OTHER, BC, SELFPAY ==
--- NOTE | 2023-12-25 14:42 | RAD_ITS ---
STUDY: X-RAY CHEST REASON FOR EXAM: Female, 43 years old. cough TECHNIQUE: PA and lateral views of the chest. COMPARISON: 09/09/2019. FINDINGS: The lungs are clear and expanded. There is no demonstrated pleural abnormality. Normal size heart. Normal mediastinum and funmilayo. Normal visualized pulmonary arteries. Normal visualized aortic arch and descending thoracic aorta. There are mild degenerative changes of the visualized thoracic spine. Normal visualized ribs, clavicles, and shoulders. There is no demonstrated abnormality of the visualized soft tissue structures of the upper abdomen. RAD/Chest PA and Lateral IMPRESSION: No acute cardiopulmonary disease. Electronically Signed: Mali Arteaga MD at 17:05 EST ,
[2023-12-25 17:54] LABS: Absolute Lymphocyte Count 2.19 X10^3/uL (0.83-4.51); Absolute Neutrophil Count 5.5 X10^3/uL (2.0-7.7); Basophil# 0.03 X10^3/uL; Basophil% 0.3 % (0-1); Eosinophil# 0.16 X10^3/uL; Eosinophils% 1.9 % (0-5); Hematocrit 39.9 % (37-47); Lymphocyte # 2.19 X10^3/ul (0.83-4.51); Lymphocyte % 25.3 % (19-41); Mean Corp Hgb Conc 32.6 g/dL (32-36); Mean Corpuscular Hgb 31.6 pg (27.0-32.0); Mean Corpuscular Volume 97.1 fL (81-99); Mean Platelet Vol. 9.5 fl (6.2-12.0); Monocyte# 0.71 X10^3/uL; Monocyte% 8.2 % (0-10); NRBC Flagged by Analyzer 0 % (0-5); Neutrophil # 5.53 X10^3/uL (2.7-7.7); Neutrophil % 64.1 % (47-70); Platelet Count 417 K/mm3 (150-450); RBC Distribution Width CV 12.1 % (11.6-14.6); RBC Distribution Width SD 43.6 fl (35.1-43.9); Red Blood Count 4.11 M/mm3 (4.2-5.4); White Blood Count 8.6 K/mm3 (4.4-11.0)
[2023-12-25 18:08] LABS: Erythrocyte Sedimentation Rate 8 mm/hr (0-30)
== END | disposition home or self-care (01) ==
PROVIDERS: PCP Family Medicine; Referring Provider Family Medicine; Visit Provider Family Medicine
DX: U07.1 COVID-19 (principal); R05.9 Cough, unspecified; R53.83 Other fatigue
CPT/HCPCS: 36415; 71046; 85025; 85652